=== PATIENT | male | born 2000 | race Caucasian/White ===

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

== ENCOUNTER 2024-08-17 10:23 | Emergency (ER) | payer SELFPAY ==
[~2024-08-17] VITALS: Ht 177.8 cm; Wt 61.0 kg
[~2024-08-17 10:23] MED LIST: OMNICEF300 M1 PO
[2024-08-17 10:51] VITALS: BP 130/108
[2024-08-17 13:08] VITALS: BP 110/76
[2024-08-17 13:15] VITALS: BP 116/80
[2024-08-17 13:49] VITALS: BP 116/80
== END 2024-08-17 13:57 | disposition home or self-care (01) | DRG 728 ==
LOC: ED 10:23
DX: N49.2 Inflammatory disorders of scrotum (principal)